=== PATIENT | female | born 1990 | race Caucasian/White ===

== ENCOUNTER → 2017-06-20 | Outpatient (CLI) | payer OTHER ==
[2017-06-20 10:38] LABS: ALT/SGPT 17 U/L (12-78); AST/SGOT 19 U/L (15-37); BLOOD UREA NITROGEN 14 mg/dl (7-18); BUN/CREATININE RATIO 15.1 (10-20); CARBON DIOXIDE 26 mmol/L (21-32); CHLORIDE 106 mmol/L (98-107); CHOLESTEROL 186 mg/dl (0-200); CREATININE 0.95 mg/dl (0.60-1.20); GLUCOSE,FASTING 85 mg/dl (70-99); SODIUM 138 mmol/L (136-145)
[2017-06-20 10:41] LABS: ALB/GLOB RATIO 0.9 (0.9-2); ALKALINE PHOSPHATASE 46 U/L (45-117); CHOLESTEROL/HDL RATIO 2.4; HDL CHOLESTEROL 77 mg/dl; LDL CHOLESTEROL CALCULATED 91 mg/dl; TRIGLYCERIDES 92 mg/dl (0-150); VERY LOW DENSITY LIPOPROT CALC 18 mg/dl
== END | disposition home or self-care (01) ==
LOC: C.LABSPEC 09:24
PROVIDERS: ATTEND Physician Assistant
DX: Z00.00 Encounter for general adult medical examination without abnormal findings (principal)

== ENCOUNTER → 2017-08-08 | Outpatient (CLI) | payer OTHER | END | disposition home or self-care (01) | LOC: C.PAPS 09:28 | PROVIDERS: ATTEND Family Medicine | DX: Z01.419 Encounter for gynecological examination (general) (routine) without abnormal findings (principal) ==

== ENCOUNTER → 2017-10-04 | Outpatient (CLI) | payer OTHER | END | disposition home or self-care (01) | LOC: C.LABPBG 14:24 | PROVIDERS: ATTEND Family Medicine | DX: Z32.01 Encounter for pregnancy test, result positive (principal) ==

== ENCOUNTER → 2017-10-30 | Outpatient (CLI) | payer OTHER | END | disposition home or self-care (01) | LOC: C.LABSPEC 17:15 | PROVIDERS: ATTEND Obstetrics & Gynecology | DX: Z34.01 Encounter for supervision of normal first pregnancy, first trimester (principal) ==

== ENCOUNTER → 2017-11-06 | Outpatient (CLI) | payer OTHER ==
[2017-11-06 17:13] LABS: BASO % 0.3 %; BASO ABS # 0.03 K/uL (0-0.2); EOS % 1.2 %; HEMATOCRIT 38.2 % (37-47); HEMOGLOBIN 13.7 g/dL (12.0-16.0); IG# 0.01 K/uL (0.00-0.02); LYMPH % 25.9 %; LYMPH ABS # 2.24 K/uL (1.2-3.4); MEAN CELL VOLUME 83.6 fL (80-100); MEAN CORPUSCULAR HGB CONC 35.9 g/dl (32-36); MEAN PLATELET VOLUME 9.5 fL (7.4-10.4); MONO % 8.3 %; MONO ABS # 0.72 K/uL (0.11-0.59); NEUT % 64.2 %; NEUT ABS # 5.54 K/uL (1.4-6.5); PLATELET COUNT 277 K/uL (130-400); RED CELL DISTRIBUTION WIDTH CV 13.5 % (11.5-14.5); RED CELL DISTRIBUTION WIDTH SD 40.4 fL (36.4-46.3); WHITE BLOOD COUNT 8.64 K/uL (4.8-10.8)
== END | disposition home or self-care (01) ==
LOC: C.LAB1850 16:20
PROVIDERS: ATTEND Obstetrics & Gynecology
DX: Z34.01 Encounter for supervision of normal first pregnancy, first trimester (principal); Z3A.00 Weeks of gestation of pregnancy not specified

== ENCOUNTER → 2017-12-19 | Outpatient (CLI) | payer OTHER | END | disposition home or self-care (01) | LOC: C.LAB 17:19 | PROVIDERS: ATTEND Obstetrics & Gynecology | DX: Z34.02 Encounter for supervision of normal first pregnancy, second trimester (principal) ==

== ENCOUNTER → 2018-03-06 | Outpatient (CLI) | payer OTHER ==
[2018-03-06 17:54] LABS: HEMATOCRIT 32.2 % (37-47); HEMOGLOBIN 11.4 g/dL (12.0-16.0)
== END | disposition home or self-care (01) ==
LOC: C.LAB 16:52
PROVIDERS: ATTEND Obstetrics & Gynecology
DX: Z34.03 Encounter for supervision of normal first pregnancy, third trimester (principal); Z3A.00 Weeks of gestation of pregnancy not specified

== ENCOUNTER 2018-05-20 18:26 | Outpatient (CLI) | payer OTHER ==
[~2018-05-20] VITALS: Ht 165.1 cm; Wt 72.7 kg
[2018-05-20] MEDS ORDERED: PRENTAB26 PO (19:30)
[2018-05-20 19:31] VITALS: Ht 165.1 cm; Wt 72.7 kg
== END 2018-05-20 19:50 | disposition home or self-care (01) ==
LOC: C.OPB 18:26 → C.LD 18:26 → C.OPB 19:50
PROVIDERS: ATTEND Obstetrics & Gynecology
DX: O36.5930 Maternal care for other known or suspected poor fetal growth, third trimester, not applicable or unspecified (principal); Z3A.00 Weeks of gestation of pregnancy not specified

== ENCOUNTER 2018-05-21 07:46 | Inpatient (IN) | payer OTHER ==
[~2018-05-21] VITALS: Ht 165.1 cm; Wt 68.2 kg
[~2018-05-21 07:46] MED LIST: PRENTAB26 PO
[2018-05-21] MEDS ORDERED: LACTATED RINGER'S 1000ML 500 ML IV PRN ×2 (08:11→14:35)
[2018-05-21] MEDS ORDERED: OXYTOCIN 30 UNITS/500ML NSS IV PRN ×2 (08:15→21:15)
[2018-05-21 08:17] VITALS: Ht 165.1 cm; Wt 68.2 kg
[2018-05-21 08:35] LABS: HEMATOCRIT 36.8 % (37-47); HEMOGLOBIN 12.2 g/dL (12.0-16.0); MEAN CELL VOLUME 82.3 fL (80-100); MEAN CORPUSCULAR HEMOGLOBIN 27.3 pg (25-34); MEAN CORPUSCULAR HGB CONC 33.2 g/dl (32-36); MEAN PLATELET VOLUME 9.9 fL (7.4-10.4); PLATELET COUNT 208 K/uL (130-400); RED CELL DISTRIBUTION WIDTH CV 13.3 % (11.5-14.5); WHITE BLOOD COUNT 10.52 K/uL (4.8-10.8)
[2018-05-21] MEDS: LACTATED RINGER'S 1000ML 1,000 ML IV SCH ×3 (08:37→17:09)
[2018-05-21] MEDS ORDERED: COUGH DROP (SUGAR FREE) LOZ 24 LOZ/1 BOX LOZ ONE (10:49)
[2018-05-21] MEDS ORDERED: EpHEDrine SULFATE INJ 50 MG/ML AMP ONE (12:18)
[2018-05-21] MEDS ORDERED: BUPIVACAINE 0.25% 30 ML VIAL ONE (12:18)
[2018-05-21] MEDS ORDERED: FENTANYL CITRATE INJ 50 MCG/1 ML 2 ML VIAL ONE (12:19)
[2018-05-21] MEDS ORDERED: FENTANYL 2MCG/ML ROPIV 1.25MG/ML 100ML BAG ONE (12:19)
[2018-05-21] MEDS ORDERED: NALOXONE HCL INJ 1 MG in SODIUM CHLORIDE 0.9% 1000ML 1,000 ML IV PRN ×4 (14:35)
[2018-05-21] MEDS ORDERED: NALOXONE HCL INJ 0.4 MG/1 ML VIAL/CARP IV PRN (14:45)
[2018-05-21] MEDS ORDERED: NALBUPHINE HCL INJ 10 MG/ML 1ML AMP IV PRN (14:45)
[2018-05-21] MEDS ORDERED: DiphenhydrAMINE HCL 50 MG/ML VIAL IV PRN (14:45)
[2018-05-21] MEDS ORDERED: ONDANSETRON INJ 2 MG/ML 2 ML VIAL IV PRN (14:45)
[2018-05-21] MEDS ORDERED: PROMETHAZINE HCL INJ 25 MG in SODIUM CHLORIDE 0.9% 50ML 50 ML IV PRN (14:45)
[2018-05-21] MEDS ORDERED: EpHEDrine SULFATE INJ 50 MG/ML AMP IV PRN (14:45)
[2018-05-21] MEDS: FENTANYL 2MCG/ML ROPIV 1.25MG/ML 100ML BAG EPI PRN ×2 (14:50→19:38)
[2018-05-21] MEDS ORDERED: LANOLIN OINT EXT PRN (21:15)
[2018-05-21] MEDS ORDERED: HYDROCORTISONE ACETATE 25 MG SUPP PR PRN (21:15)
[2018-05-21] MEDS ORDERED: SUPERCREAM 0.870 % 15GM JAR EXT PRN (21:15)
[2018-05-21] MEDS ORDERED: BENZOCAINE 20% AER SPR 82.5 GM CAN EXT PRN (21:15)
[2018-05-21] MEDS ORDERED: DIPHTHERIA/TETANUS/PERTUSSIS 0.5 ML SYR/VIAL IM. ONE (21:15)
[2018-05-21] MEDS ORDERED: ACETAMINOPHEN 325 MG TAB PO PRN (21:15)
--- NOTE | 2018-05-21 22:31 | Anesthesia Procedure Note ---
Anesthesia Epidural Removal Nt Date & Time May 21, 2018 at 22:31 Vital Signs Pain Intensity: 0.0 Notes Mental Status: alert / awake / arousable, participated in evaluation Nausea / Vomiting: adequately controlled Pain: adequately controlled Airway Patency, RR, SpO2: stable & adequate BP & HR: stable & adequate Hydration State: stable & adequate Neuraxial Anesthesia: was administered, sensory block is resolved Anesthetic Complications: no major complications apparent, pt satisfied with anesthetic care Epidural: removed without complications, with tip intact
[2018-05-21] MEDS: IBUPROFEN 600 MG TAB PO PRN (22:37)
--- NOTE | 2018-05-21 23:47 | DELIVERY SUMMARY ---
DATE OF OPERATION: 05/21/2018 PREOPERATIVE DIAGNOSES: 1. Intrauterine at 38 and 6/7 weeks. 2. Suspected intrauterine growth restriction. 3. Left renal pyelectasis. POSTOPERATIVE DIAGNOSES: 1. Intrauterine at 38 and 6/7 weeks. 2. Suspected intrauterine growth restriction. 3. Left renal pyelectasis. PROCEDURES: 1. Garber catheter for cervical ripening. 2. Pitocin augmentation. 3. Epidural. 4. Amniotomy for clear fluid. 5. Normal spontaneous vaginal delivery. 6. Second-degree perineal laceration and left labial laceration with repair. SURGEON: Alexandra Daniel MD ANESTHESIA: Epidural. ESTIMATED BLOOD LOSS: 300 mL. DESCRIPTION OF THE PROCEDURE: The patient presented to labor and delivery for induction. After having a Garber catheter placed the night before, she was admitted and was 4 and 60%. She underwent Pitocin augmentation when she was uncomfortable. She underwent an epidural anesthetic. She was then checked and found to be 4-5 cm dilated, 50% effaced and amniotomy was performed for copious amount of clear fluid. She again progressed with Pitocin augmentation to complete, complete and +2 station. She pushed for approximately 35 minutes to deliver a viable male in left occiput anterior presentation. A loose nuchal cord was reduced easily. The nose and mouth were bulb suctioned and the rest of the infant was then delivered without difficulty. The was immediately vigorous and cried. So the nose and mouth were bulb suctioned. The was placed on the maternal abdomen for drying and attention. Cord was clamped and cut after 1 minute of life. Cord blood and segment were obtained. Placenta was delivered spontaneously intact with a 3-vessel cord. Cervix, sulci, and rectum were examined and found to be intact. Second-degree perineal laceration was repaired with 3-0 Vicryl and a left labial laceration with interrupted sutures of 4-0 Vicryl. Hemostasis obtained with dilute Pitocin and fundal massage. Apgars 9 and 9. Mother and baby doing well at the end of the delivery. I attest to the content of the Intraoperative Record and any orders documented therein. Any exception s are noted below.
[2018-05-22] VITALS (7 sets, daily range): BP systolic 90–121; BP diastolic 56–77; PULSE 70–96; TEMP 36.4–36.7; O2SAT 97
[2018-05-22] MEDS: IBUPROFEN 600 MG TAB PO PRN ×3 (02:05→17:44)
[2018-05-22 06:21] LABS: HEMATOCRIT 33.4 % (37-47)
--- NOTE | 2018-05-22 07:53 | OB/GYN Progress Note ---
ONLINE ADVERTISING MANAGER Progress Note Date of Service May 22, 2018. Subjective conversation w/ patient Ambulation: limited ambulation Voiding: no voiding problems Passing Gas: Yes Diet Tolerance: Regular Diet Lochia: Moderate Feeding Type: Breast Feeding Pain: Improving but still present in anal area. Review of Systems Constitutional: No fever, No chills Respiratory: No cough, No shortness of breath Cardiac: No chest pain, No palpitations Breast: No breast pain Female : No dysuria Objective Vital Signs Date Time Temp Pulse Resp B/P (MAP) Pulse Ox O2 Delivery O2 Flow Rate FiO2 05/22/18 03:30 36.4 73 18 106/68 (81) Room Air 05/22/18 00:05 36.6 76 18 112/75 (87) Room Air 05/22/18 00:05 Room Air Physical Exam General Appearance: WELL-APPEARING, NO APPARENT DISTRESS Respiratory/Chest: lungs clear, normal breath sounds, no respiratory distress, no accessory muscle use Cardiovascular: regular rate, rhythm, no gallop, no murmur Fundus: Firm (at u) Extremities: normal inspection, no calf tenderness Laboratory Results Last 24 Hours Test 05/21/18 08:17 05/22/18 05:55 White Blood Count 10.52 K/uL Red Blood Count 4.47 M/uL Hemoglobin 12.2 g/dL 11.0 g/dL Hematocrit 36.8 % 33.4 % Mean Corpuscular Volume 82.3 fL Mean Corpuscular Hemoglobin 27.3 pg Mean Corpuscular Hemoglobin Concent 33.2 g/dl RDW Standard Deviation 40.0 fL RDW Coefficient of Variation 13.3 % Platelet Count 208 K/uL Mean Platelet Volume 9.9 fL Assessment and Plan Post- Day Number: 1 Continue Routine Care: Analgesia PRN, advised ice to anal area. Escalate diet as needed. Ambulation encouraged. Resident Physician Supervision Note: I was present with Dr. Wong during the history and exam. I discussed the case with the resident and agree with the findings and plan as documented in the note. Any exceptions or clarifications are listed here: Doing well. Routine care. Documented By: Alexandra Daniel
[2018-05-22] MEDS: OXYCODONE/ACETAMINOPHEN 5-325 TAB PO PRN ×3 (08:05→17:45)
[2018-05-22] MEDS: DOCUSATE SODIUM 100 MG CAP PO SCH ×2 (08:06→20:27)
[2018-05-22] MEDS: PRENATAL VITAMIN TAB PO SCH (08:06)
[2018-05-23] MEDS: OXYCODONE/ACETAMINOPHEN 5-325 TAB PO PRN (00:46)
[2018-05-23] MEDS: IBUPROFEN 600 MG TAB PO PRN ×3 (00:47→11:35)
[2018-05-23] MEDS ORDERED: OXYC-57 PO (07:59)
[2018-05-23] MEDS ORDERED: MISC-836 (08:00)
[2018-05-23 08:02] VITALS: BP 108/76; PULSE 67; TEMP 36.5; O2SAT 96
--- NOTE | 2018-05-23 08:11 | OB/GYN Progress Note ---
HEALTH CLUB ATTENDANT Progress Note Date of Service May 23, 2018. Subjective conversation w/ patient Ambulation: ambulating normally Voiding: no voiding problems Passing Gas: Yes Diet Tolerance: Regular Diet Lochia: Moderate Feeding Type: Breast Feeding Pain: Improving with use of meds, ice packs and sitz baths. Review of Systems Constitutional: No fever, No chills Respiratory: No cough, No shortness of breath Cardiac: No chest pain, No palpitations Female : No dysuria Objective Vital Signs Date Time Temp Pulse Resp B/P (MAP) Pulse Ox O2 Delivery O2 Flow Rate FiO2 05/23/18 08:02 36.5 67 18 108/76 (87) 96 Room Air 05/22/18 23:05 36.7 80 20 121/73 (89) 97 Room Air 05/22/18 19:25 97 Room Air 05/22/18 19:25 36.4 90 20 113/77 (89) 97 Room Air 05/22/18 15:20 36.5 96 16 90/56 (67) Room Air 05/22/18 15:20 Room Air 05/22/18 11:50 36.4 70 18 108/73 (85) Room Air Physical Exam General Appearance: WELL-APPEARING, NO APPARENT DISTRESS Respiratory/Chest: lungs clear, normal breath sounds, no respiratory distress, no accessory muscle use Cardiovascular: regular rate, rhythm, no murmur Abdomen: soft Fundus: Firm (At umbilicus) Extremities: no calf tenderness Assessment and Plan Post- Day Number: 2 Continue Routine Care: 27 yo , GBS neg Analgesia PRN Escalate diet as needed Ambulation encouraged Discharge today with pain meds and breast pump prescription. Resident Physician Supervision Note: I was present with Dr. Wong during the history and exam. I discussed the case with the resident and agree with the findings and plan as documented in the note. Any exceptions or clarifications are listed here: PPD#2 doing well. Discharge home. [place] PDMP checked. Rx percocet per patient request due to perineal pain with laceration. RTO 6wPP. Reviewed discharge instructions. Documented By: Amanda Loyola
--- NOTE | 2018-05-23 08:19 | Discharge Instructions ---
Discharge Instructions Date of Service May 23, 2018. Admission Reason for Admission: Induction Discharge Discharge Diagnosis / Problem: Vaginal Delivery Discharge Goals Goal(s): Routine recovery after delivery Medications Continue Dispensed Medications: supercream, dermaplast, tucks, lansinoh Activity Recommendations Activity Limitations: per Instructions/Follow-up section . Instructions / Follow-Up Instructions / Follow-Up ACTIVITY RECOMMENDATIONS: * Gradual return to full activity over the next 2-3 weeks. * No lifting - nothing heavier than baby over the next 2-3 weeks. * Do not engage in vigorous exercise, sexual activity or sports until cleared by your physician. * Do not drive or operate any motorized equipment until cleared by your physician. * You may shower/bathe daily. MEDICATIONS: For discomfort or pain, you may use Acetaminophen (Tylenol), Ibuprofen (Advil), or Naproxen (Aleve) following the package directions. For constipation you may use Colace following the package directions. BREAST CARE: If you are not breast feeding: * Wear a supportive bra 24 hours a day for one to two weeks. * Avoid stimulating your breasts and nipples as much as possible during the first few weeks after delivery. * When taking a shower, have the warm water hit your back, not breasts. * When your breasts feel full, apply ice packs. Usually three to four times a day helps ease the discomfort. * Take a mild pain medication (Tylenol / Motrin) when you are uncomfortable. If breast feeding: * Use breast milk to lubricate nipples. Lansinoh cream may be used for sore nipples. You do not need to remove cream prior to breast feeding. If using a different brand of cream, check the label for directions regarding removal of cream prior to nursing. * Wear a supportive bra. * If having problems with breasts or breast feeding, call a senior professional services consultant or your health care provider. EPISIOTOMY CARE: After delivery, if you have an episiotomy (stitches), the following steps will ease discomfort and aid healing. * For the first 24 hours after delivery, place ice packs next to your episiotomy to help reduce swelling. * After the first 24 hour-period, sitz baths, either portable or in the tub, are suggested. A shower with a shower arm sprayed over the episiotomy may be comforting. * Carmen care should be done after each voiding and bowel movement. Squirt warm water from a plastic bottle over the perineum (region of the body between the anus and urinary opening) and pat dry. * Use Dermoplast to ease discomfort. Shake container. [place] directly over the episiotomy. Place a Tucks on a clean sanitary pad next to your episiotomy. SPECIAL CARE INSTRUCTIONS: When you are discharged from the hospital, it is important for you to follow the instructions listed below: * During the first week at home, you should be able to care for yourself and your baby. In addition, the usual light household activities are encouraged. * Limit your activities to the way you feel. Do not try to clean the house or move furniture. Be sensible. * If you actively engage in sports and have done so up until the time of your delivery, you may resume these activities as soon as you feel able. This may take up to one month or even longer. Use good judgment. * Continue to take your vitamins for at least six weeks after the of your baby. * Your diet need not be limited unless you were on a special diet before your delivery. Breast-feeding mothers need around 2500 calories per day and at least 64-80 ounces of fluid per day (8 to 10 glasses). * You should eat foods from the four major food groups. Crash diets or fad diets are to be avoided. Eating lean meats, fresh fruits and vegetables, low-fat dairy products, high fiber foods and a regular exercise program, will help you get back to your pre- weight without putting your health at risk. * Constipation is sometimes a problem after delivery. Take a mild laxative as needed. If breast feeding, Milk of Magnesia is acceptable to use. You may use a suppository or Fleets enema if no episiotomy. * A daily shower or tub bath is suggested. Be sure to thoroughly and gently dry the perineum. * A bloody vaginal discharge will usually continue until around four weeks post . A small amount of bleeding may continue for as long as six weeks. Vaginal discharge changes from the bright red bleeding after delivery to pink then brownish and finally yellowish-pink before becoming white and disappearing. * Bleeding may increase with activity. Your first period may come in 4-8 weeks. If you are breast feeding, your period may be delayed even longer. * [place] (sex) can begin whenever both you and your partner feel comfortable and do not have any form of genital infection. It is recommended that you wait at least six weeks for internal and external healing to occur. If you have questions, please talk to your health care practitioner. A condom should be used to prevent infection and . * Foreplay, gentle intercourse and lubrication is very important the first several times to prevent pain. A water-based lubricant such as K-Y jelly or Astroglide may be used. * If you have RH negative blood and your baby is RH positive, you will receive RHOGAM by injection prior to discharge. The nurse will give you a card to keep with you that has the date and place that you received RHOGAM after delivery. * During your care, you had a Rubella screen done to check for the presence of rubella antibodies in your blood. If your test was negative, you will receive a Rubella vaccine prior to discharge. This vaccine may cause a fever, soreness at the injection site and flu-like symptoms. If these symptoms persist, notify your health care practitioner. is not advised for one month after a Rubella vaccine. * Verbalizes understanding of car seat law as reviewed with patient nursing. * Car Seat hand-out given and reviewed with patient by nursing. * Shaken baby information reviewed with patient by nursing. Call you doctor if: * Heavy bleeding (saturating several pads an hour) or passing clots the size of your fist. * A fever >101 degrees F (38.3 degrees C) on two occasions four hours apart and /or chills. * Unusual pain in the pelvic or vaginal areas. * "Baby Blues" lasting longer than two weeks. If you have any questions or concerns, call your health care practitioner at . FOLLOW UP VISIT: * Please call the office at to schedule a 6 week examination. It is important you keep this appointment. It is important for you to make arrangements for either yearly or twice yearly check-ups thereafter. Current Hospital Diet Patient's current hospital diet: Regular OB Diet Discharge Diet Recommended Diet: Regular OB Diet Pending Studies Studies pending at discharge: no Medical Emergencies . Who to Call and When: Medical Emergencies: If at any time you feel your situation is an emergency, please call 911 immediately. . Non-Emergent Contact Non-Emergency issues call your: Primary Care Provider . . "Provider Documentation" section prepared by Rosita Wong. .
[2018-05-23] MEDS: PRENATAL VITAMIN TAB PO SCH (08:23)
[2018-05-23] MEDS: DOCUSATE SODIUM 100 MG CAP PO SCH (08:23)
[2018-05-23 11:30] VITALS: BP 108/75; PULSE 71; TEMP 36.6; O2SAT 97
[2018-05-23 13:30] VITALS: BP_DIAS 75; PULSE 71; TEMP 36.6
== END 2018-05-23 14:35 | disposition home or self-care (01) | DRG 775 ==
LOC: C.LD 07:46 → C.OBG 23:45
PROVIDERS: ADMIT Obstetrics & Gynecology; ATTEND Obstetrics & Gynecology
PROC: 10E0XZZ Delivery of Products of Conception, External Approach (ICD-10-PCS; principal; 2018-05-21)
PROC: 0KQM0ZZ Repair Perineum Muscle, Open Approach (ICD-10-PCS; principal; 2018-05-21)
DX: O69.81X0 Labor and delivery complicated by cord around neck, without compression, not applicable or unspecified (principal); O70.1 Second degree perineal laceration during delivery; Z3A.38 38 weeks gestation of pregnancy; Z37.0 Single live birth

== ENCOUNTER 2021-06-05 12:18 | Inpatient (IN) ==
[2021-06-05] MEDS ORDERED: OXYTOCIN 30 UNITS/500 ML BAG IV PRN ×3 (12:57→17:04)
[2021-06-05] MEDS: LACTATED RINGER'S 1,000 ML IV PRN ×2 (13:10→15:01)
--- NOTE | 2021-06-05 13:12 | History & Physical Report ---
Date of Service June 05, 2021 Assessment & Plan (1) Normal labor: Plan: IUP at term in active labor requesting epidural analgesia anticipate vaginal History of Present Illness Primary Care Provider: Lori Canseco DO Patient is a 30 yo white female EDC 06/17/21 who presents with regular ctns every 5 mins. no bloody show or SPROM. has been uncomplicated. GBS -negative, blood type-A positive Allergies Allergy/AdvReac Type Severity Reaction Status Date / Time latex Allergy Unknown swelling Verified 06/01/21 13:28 No Known Drug Allergies AdvReac Verified 06/01/21 13:28 Home Medications Medication Instructions Recorded Confirmed Type vits no.124-ferrous fum 1 tab PO HS 06/05/21 06/05/21 History 27 mg iron-folic acid 800 mcg tablet ( Vitamin) Patient History Medical History Anxiety H/O varicella IUGR (intrauterine growth retardation) Surgical History H/O nasal septoplasty [place] teeth extracted Family History Mother Premature labor Dyslipidemia Phlebitis Gestational diabetes Diabetes Atrial fibrillation Sister Premature labor Cervix cancer Gestational diabetes Uncle Myocardial infarction, Onset Age: 40 Father Hypertension Anxiety Aunt Colorectal cancer Grandmother (Maternal) Breast cancer Son UPJ (ureteropelvic junction) obstruction Denies family history of Ovarian cancer Prostate cancer Social History Smoking Status: Never smoker Hx Alcohol Use: Yes Hx Substance Use: No Preferred Language: Estonian Communication Ability: Effective Visual Impairment: No Limitations Hearing Ability: Normal Bottling Room Worker Required: No Beliefs That Will Affect Care: None marital status: marital status details: Eliseo Medina (28) [phone] Current Living Situation: Spouse Current Living Situation Comment: Lives with and son current occupational status: employed current occupation: lab [employer] Other Information That Helps Us Care for You: No Feels Safe at Home: Yes Childhood Exposure to Second-Hand Smoke: No caffeine: Yes (Coffee x 1 cup per day.) during the past year weight has: remained stable Dental Care, Regularly: Yes Physical Activity Frequency: 1-2 Times per Week Seatbelt Use: always Sunscreen Use: Yes Assistive Devices: None Review of Systems All systems reviewed & are unremarkable except as noted in HPI & below Physical Exam Constitutional: WD/WN, vitals as above Respiratory: normal respiratory effort, lungs clear to auscultation Cardiovascular: RRR, no murmur, no edema Psychiatric: A+Ox3, euthymic affect Genitourinary: OB Exam Abdomen: + vertex and + regular contractions (5-6 minutes) Manual OB Exam: + cervical dilation 6 cm, + cervical effacement 100% and + station -1 OB Exam Monitor Tracing: + external FHT monitor used, + external uterine monitor used, + category I and + normal FHT variability Results & Data ([facility]) Vital Signs (Past 12 Hours) Vital Signs Temp Pulse Resp BP 06/05/21 12:38 97.7 F 72 20 108/70 06/05/21 12:35 72 108/70 Coding Level of Care Code None Diagnoses Normal labor O80; Z37.9
[2021-06-05] MEDS ORDERED: BUPIVACAINE 0.25% 30 ML VIAL ONE (13:16)
[2021-06-05] MEDS ORDERED: SODIUM CHLORIDE 0.9% INJ 10 ML VIAL ONE (13:16)
[2021-06-05] MEDS ORDERED: ePHEDrine sulfate 50 MG/ML AMP ONE (13:16)
[2021-06-05 13:17] LABS: Hemoglobin 12.2 g/dL (12.0-16.0); Mean Corpuscular Hemoglobin 28.2 pg (25-34); Mean Corpuscular Hgb Conc 33.9 g/dL (32-36); Mean Corpuscular Volume 83.3 fL (80-100); Mean Platelet Volume 9.8 fL (7.4-10.4); Platelet Count 223 K/uL (130-400); RDW Coefficient of Variation 13.2 % (11.5-14.5); RDW Standard Deviation 40.3 fL (36.4-46.3); Red Blood Count 4.32 M/uL (4.2-5.4); White Blood Count 10.31 K/uL (4.8-10.8)
[2021-06-05] MEDS ORDERED: fentaNYL 2MCG/ML ROPIVACAINE 1.25MG/ML 100 ML BAG EPI ONE (13:17)
--- NOTE | 2021-06-05 13:29 | Anesthesiology Consultation ---
Date of Service June 05, 2021 Assessment & Plan (1) Encounter for pre-operative examination: Chart Review Chart Review: Acceptable Risk for Labor Epidural History Height/Weight Height: 5 ft 4 in Weight: 83.461 kg Allergies Allergy/AdvReac Type Severity Reaction Status Date / Time latex Allergy Unknown swelling Verified 06/01/21 13:28 No Known Drug Allergies AdvReac Verified 06/01/21 13:28 Medications Home Medications Medication Instructions Recorded Confirmed Last Taken vits no.124-ferrous fum 1 tab PO HS 06/05/21 06/05/21 06/03/21 27 mg iron-folic acid 800 mcg tablet ( Vitamin) Active Medications Generic Name Dose Route Start Last Admin Trade Name Freq PRN Reason Stop Dose Admin Lactated Ringer's 1,000 mls @ 125 mls/hr 06/05/21 12:57 06/05/21 13:10 Lr IV 06/07/21 12:56 999 mls/hr .Q8H PRN Administration L&D Protocol Protocol Past Medical History Medical History Anxiety H/O varicella IUGR (intrauterine growth retardation) Past Family History Family History Mother Premature labor Dyslipidemia Phlebitis Gestational diabetes Diabetes Atrial fibrillation Sister Premature labor Cervix cancer Gestational diabetes Uncle Myocardial infarction, Onset Age: 40 Father Hypertension Anxiety Aunt Colorectal cancer Grandmother (Maternal) Breast cancer Son UPJ (ureteropelvic junction) obstruction Denies family history of Ovarian cancer Prostate cancer Past Surgical History Surgical History H/O nasal septoplasty [place] teeth extracted Social History Smoking Status: Never smoker Hx Alcohol Use: Yes Hx Substance Use: No Physical Exam Vital Signs Last Vital Signs Temp 36.5 C 06/05/21 12:38 Pulse 72 06/05/21 12:38 Resp 20 06/05/21 12:38 BP 108/70 06/05/21 12:38 Testing Laboratory Results 06/05/21 13:07
[2021-06-05] MEDS: fentaNYL citrate 100 MCG/2 ML VIAL ONE ×2 (14:00→18:37)
[2021-06-05] MEDS ORDERED: ePHEDrine sulfate 50 MG/ML AMP IV PRN (14:11)
[2021-06-05] MEDS ORDERED: NALOXONE HCL 1 MG in SODIUM CHLORIDE 0.9% 1000ML 1,000 ML IV PRN ×2 (14:11→14:12)
[2021-06-05] MEDS ORDERED: NALOXONE HCL 0.4 MG/1 ML VIAL/CARP IV PRN (14:11)
[2021-06-05] MEDS ORDERED: fentaNYL 2MCG/ML ROPIVACAINE 1.25MG/ML 100 ML BAG EPI PRN (14:11)
[2021-06-05] MEDS ORDERED: ONDANSETRON INJ 2 MG/ML 2 ML VIAL IV PRN (14:12)
[2021-06-05] MEDS ORDERED: BENZOCAINE 20% AER SPR 82.5 GM CAN EXT PRN (17:04)
[2021-06-05] MEDS ORDERED: ACETAMINOPHEN 325 MG TAB PO PRN (17:04)
[2021-06-05] MEDS ORDERED: oxyCODONE/ACETAMINOPHEN 5mg/325mg TAB PO PRN (17:04)
[2021-06-05] MEDS ORDERED: bisacodyL 10 MG SUPP PR PRN (17:04)
[2021-06-05] MEDS ORDERED: SUPERCREAM 0.870% 15 GM JAR EXT PRN (17:04)
[2021-06-05] MEDS ORDERED: HYDROCORTISONE ACETATE 25 MG SUPP PR PRN (17:04)
--- NOTE | 2021-06-05 17:10 | Delivery Summary ---
Vaginal Delivery Summary Date of Service June 05, 2021 Vaginal Delivery Summary and 1st Degree LAC Patient is a 30-year-old 2 para 1-0-0-1 white female who presented in labor and delivery at 38 weeks in active labor. She requested epidural analgesia which was effective. Membranes ruptured spontaneously for clear fluid. She required Pitocin augmentation but then went quickly to full dilation with the urge to push. She pushed effectively over an intact perineum for d elivery of a viable female . After the head was delivered the rest of the delivered easily and was placed on the mother's abdomen for further attention and drying. The was vigorous and crying. After 1 minute the cord was clamped and cut. The placenta was expressed intact with a three-vessel cord which also appeared to have a velamentous insertion of the cord. It will be sent for examination. A first-degree perineal laceration was repaired with 3-0 chromic in the usual fashion. bleeding was controlled with dilute Pitocin and fundal massage. Estimated blood loss was 300 cc. Mother and were doing well after delivery[place] [facility] [place] Delivery Type Details: and 1st Degree LAC
--- NOTE | 2021-06-05 17:25 | Anesthesia Procedure Note ---
Date of Service June 05, 2021 Anesthesia Post Epidural Note Vital Signs Vital Signs: Temp Pulse Resp BP Pulse Ox 36.6 C 83 18 108/59 L 98 06/05/21 15:45 06/05/21 17:15 06/05/21 16:58 06/05/21 17:15 06/05/21 16:57 Notes Mental Status: alert / awake / arousable and participated in evaluation Nausea / Vomiting: adequately controlled Pain: adequately controlled Airway Patency, RR, SpO2: stable & adequate BP & HR: stable & adequate Hydration State: stable & adequate Neuraxial Anesthesia: was administered and sensory block is resolving Anesthetic Complications: no major complications apparent Epidural: Removed without complications and With tip intact
[2021-06-05] MEDS: IBUPROFEN 600 MG TAB PO PRN (20:38)
[2021-06-05] MEDS: DOCUSATE SODIUM 100 MG CAP PO SCH (20:40)
[2021-06-06] MEDS: IBUPROFEN 600 MG TAB PO PRN ×3 (03:55→12:25)
[2021-06-06 06:35] LABS: Hematocrit (blood only) 35.5 % (37-47); Hemoglobin 11.7 g/dL (12.0-16.0); Mean Corpuscular Hemoglobin 27.6 pg (25-34); Mean Corpuscular Volume 83.7 fL (80-100); Mean Platelet Volume 9.5 fL (7.4-10.4); Platelet Count 226 K/uL (130-400); RDW Coefficient of Variation 13.4 % (11.5-14.5); RDW Standard Deviation 40.6 fL (36.4-46.3); Red Blood Count 4.24 M/uL (4.2-5.4); White Blood Count 12.16 K/uL (4.8-10.8)
--- NOTE | 2021-06-06 07:35 | Obstetrical Progress Note ---
Date of Service June 06, 2021 Assessment & Plan (1) Encounter for care and examination after delivery: satisfactory recovery continue current care plan Subjective Ambulation: ambulating normally Voiding: no voiding problems Passing Gas:: Yes Diet Tolerance:: regular diet Lochia:: Small Feeding Type:: breast feeding stitches are sore this am but manageable Review of Systems All systems reviewed & are unremarkable except as noted in HPI & below Physical Exam Constitutional WD/WN, vitals as above Psychiatric A+Ox3, euthymic affect Genitourinary OB Exam Abdomen: + fundal height Fundus: + firm and + relation to umbilicus (at U) Results & Data ([facility]) Vital Signs (Past 12 Hours) Vital Signs Temp Pulse Resp BP Pulse Ox 06/06/21 04:00 97.9 F 78 18 112/78 06/05/21 23:39 98.2 F 71 16 119/81 99 06/05/21 20:10 98.1 F 14 103/69
[2021-06-06] MEDS ORDERED: PRENATAL VITAMIN 1 TAB PO SCH (08:00)
[2021-06-06] MEDS: DOCUSATE SODIUM 100 MG CAP PO SCH (08:33)
[2021-06-06] MEDS ORDERED: bisacodyL 5 MG TABEC PO SCH (20:00)
== END 2021-06-06 17:30 | disposition home or self-care (01) | DRG 807 ==
LOC: OPB 12:18 → 4S1 12:21 → 4S2 19:56